=== PATIENT | female | born 1965 | race Hispanic/Latino ===

== ENCOUNTER 2017-07-30 17:48 | Emergency (ER) | payer OTHER ==
[~2017-07-30] VITALS: Ht 142.2 cm; Wt 57.3 kg
[~2017-07-30 17:48] MED LIST: FLEXERIL10 MG PO; NAPROSYN500 MG PO; ULTRAM50 MG PO
[2017-07-30 18:34] LABS: ADD MIUA? YES; BILIRUBIN NEGATIVE; BLOOD MODERATE; COLOR STRAW ((YELLOW)); GLUCOSE (STRIP) NEGATIVE; HEMATOCRIT 39.6 % (36.0-46.0); KETONES NEGATIVE; LEUKOCYTES TRACE; MCH 30.6 PG (29.0-34.0); MCHC 34.1 G/DL (30.0-36.0); MCV 89.8 FL (83-99); NITRITE NEGATIVE; PLATELET COUNT 228 K/uL (156-360); PROTEIN (STRIP) NEGATIVE; RBC DIS.WIDTH-CV 12.1 % (11.8-14.6); RBC DIS.WIDTH-SD 39.9 % (39-53); RED BLOOD COUNT 4.41 M/uL (3.80-5.20); SPECIFIC GRAVITY 1.009 (1.000-1.030); UROBILINOGEN 0.2 MG/DL (0.2-1.0)
[2017-07-30 18:46] LABS: BACTERIA NONE SEEN /HPF; CASTS PRESENT /LPF; EPITHELIAL CELLS NONE SEEN /HPF; MUCUS NONE SEEN /LPF; RED BLOOD CELLS NONE SEEN /HPF (0-5); UCUL ADDED? NO; WHITE BLOOD CELLS 0-5 /HPF (0-5)
[2017-07-30 18:47] LABS: CRYSTALS NONE SEEN; HYALINE CASTS RARE /LPF
[2017-07-30 18:48] LABS: CHLORIDE 106 mEq/L (99-109); POTASSIUM 4.1 mEq/L (3.7-5.4); SODIUM 141 mEq/L (136-147)
[2017-07-30 18:50] LABS: GLUCOSE 108 mg/dL (70-99)
[2017-07-30 18:51] LABS: ANION GAP 9 MEQ/L (2-14)
[2017-07-30 18:52] LABS: TOTAL BILIRUBIN 0.2 mg/dL (0.0-1.0)
[2017-07-30 18:53] LABS: ALKALINE PHOSPHATASE 94 IU/L (3-129)
[2017-07-30 18:54] LABS: GFR ESTIMATE (CALCULATED) > 59 mL/min/
[2017-07-30 18:55] LABS: UREA NITROGEN (BUN) 25 mg/dL (9-23)
[2017-07-30 19:13] LABS: INTERNAL CONTROL VALID? YES; MONOSPOT (MONONUCLEOSIS SEROL) NEGATIVE
[2017-07-30 20:29] VITALS: BP 135/88
== END 2017-07-30 20:29 | disposition home or self-care (01) ==
LOC: EME 17:48
PROVIDERS: Physician Assistant
DX: R53.83 Other fatigue (principal); R09.89 Other specified symptoms and signs involving the circulatory and respiratory systems
CPT/HCPCS: 80053; 81003; 82607; 84443; 85027; 86308; 99281; 99283

== ENCOUNTER 2017-11-23 12:21 | Emergency (ER) | payer OTHER ==
[~2017-11-23] VITALS: Ht 142.2 cm; Wt 56.9 kg
[2017-11-23 13:17] LABS: APPEARANCE CLEAR ((CLEAR)); BILIRUBIN NEGATIVE; BLOOD LARGE; COLOR YELLOW ((YELLOW)); GLUCOSE (STRIP) NEGATIVE; KETONES NEGATIVE; LEUKOCYTES SMALL; NITRITE NEGATIVE; PROTEIN (STRIP) NEGATIVE; SPECIFIC GRAVITY 1.019 (1.000-1.030); UROBILINOGEN 0.2 MG/DL (0.2-1.0)
[2017-11-23 13:23] LABS: BACTERIA NONE SEEN /HPF; EPITHELIAL CELLS RARE /HPF; MUCUS TRACE /LPF; RED BLOOD CELLS 20-30 /HPF (0-5); UCUL ADDED? YES
[2017-11-23 13:52] LABS: BASOPHIL (%) 0.6 % (0-1); EOSINOPHIL (%) 2.2 % (0-5); EOSINOPHIL COUNT 0.1 K/uL (0-0.3); HEMATOCRIT 38.8 % (36.0-46.0); HEMOGLOBIN 13.1 G/DL (11.9-15.5); IMMATURE GRANULOCYTE (%) 0.2 % (0.0-0.7); LYMPHOCYTE (%) 30.3 % (15-42); LYMPHOCYTE COUNT 1.5 K/uL (1.0-2.8); MCH 30.8 PG (29.0-34.0); MCHC 33.8 G/DL (30.0-36.0); MCV 91.3 FL (83-99); MONOCYTE (%) 9.4 % (3-12); MONOCYTE COUNT 0.5 K/uL (0-0.8); NEUTROPHIL (%) 57.3 % (45-76); NEUTROPHIL COUNT 2.9 K/uL (1.8-6.4); PLATELET COUNT 218 K/uL (156-360); RBC DIS.WIDTH-CV 12.9 % (11.8-14.6); RED BLOOD COUNT 4.25 M/uL (3.80-5.20); WHITE BLOOD COUNT 5.1 K/uL (4.1-10.2)
[2017-11-23 14:04] LABS: CHLORIDE 108 mEq/L (99-109); POTASSIUM 3.9 mEq/L (3.7-5.4); SODIUM 139 mEq/L (136-147)
[2017-11-23 14:05] LABS: GLUCOSE 86 mg/dL (70-99)
[2017-11-23 14:09] LABS: CREATININE 0.7 mg/dL (0.6-1.3); GFR ESTIMATE (CALCULATED) > 59 mL/min/
[2017-11-23 14:10] LABS: UREA NITROGEN (BUN) 17 mg/dL (9-23)
[2017-11-23] MEDS ORDERED: MACROBID100 MG PO (15:38)
[2017-11-23 15:56] VITALS: BP 119/82
== END 2017-11-23 15:56 | disposition home or self-care (01) ==
LOC: RME 12:21 → EME 12:21 → RME 15:56
PROVIDERS: Physician Assistant
DX: N39.0 Urinary tract infection, site not specified (principal)
CPT/HCPCS: 74176; 80048; 81003; 85025; 87086; 99281; 99284; J1885; J7030

== ENCOUNTER 2017-11-28 07:15 | Emergency (ER) | payer OTHER ==
[~2017-11-28] VITALS: Ht 142.2 cm; Wt 55.5 kg
[~2017-11-28 07:15] MED LIST changes: +MACROBID100 MG PO
[2017-11-28 07:49] LABS: HEMATOCRIT 40.1 % (36.0-46.0); HEMOGLOBIN 13.6 G/DL (11.9-15.5); MCH 30.9 PG (29.0-34.0); MCHC 33.9 G/DL (30.0-36.0); MCV 91.1 FL (83-99); PLATELET COUNT 205 K/uL (156-360); RBC DIS.WIDTH-CV 12.8 % (11.8-14.6); RBC DIS.WIDTH-SD 43.1 % (39-53); WHITE BLOOD COUNT 4.6 K/uL (4.1-10.2)
[2017-11-28 07:59] LABS: APPEARANCE CLOUDY ((CLEAR)); BILIRUBIN NEGATIVE; BLOOD LARGE; GLUCOSE (STRIP) NEGATIVE; KETONES NEGATIVE; LEUKOCYTES SMALL; NITRITE NEGATIVE; PROTEIN (STRIP) 100; SPECIFIC GRAVITY 1.019 (1.000-1.030); UROBILINOGEN 0.2 MG/DL (0.2-1.0)
[2017-11-28 08:01] LABS: COLOR LT.RED ((YELLOW))
[2017-11-28 08:41] LABS: RED BLOOD CELLS TNTC /HPF (0-5)
[2017-11-28 08:42] LABS: BACTERIA 1+ /HPF; EPITHELIAL CELLS 1+ /HPF; MUCUS NONE SEEN /LPF; UCUL ADDED? YES
[2017-11-28] MEDS ORDERED: CIPRO500 MG PO ×2 (08:46→08:49)
[2017-11-28 08:55] VITALS: BP 122/78
== END 2017-11-28 09:02 | disposition home or self-care (01) ==
LOC: EME 07:15
DX: N39.0 Urinary tract infection, site not specified (principal); K64.4 Residual hemorrhoidal skin tags
CPT/HCPCS: 81003; 85027; 87086; 99281; 99284